=== PATIENT | male | born 1965 | race Caucasian/White ===

== ENCOUNTER 2019-12-28 08:58 | Outpatient (CLI) | payer BC, SELFPAY ==
--- NOTE | 2019-12-28 | EST_ITS ---
Patient Info Name: Leander Sims Age: 54 years : 1965 Gender: Male Ht: 70 in Wt: 280 lbs BSA: 2.56 m2 Exam Date: 12/28/2019 9:17 AM Exam Location: [facility] Stress Patient Status: Outpatient Admit Date: 12/28/2019 Staff Ordering Physician: Hernan, [place] OGMEZ Attending Provider: Hernan, [place] GOMEZ Exercise Technologist: Pau Mack RDCS Exam Type: CA stress test treadmill Study Info Indications R06.09 - Other forms of dyspnea A treadmill exercise stress test was performed. Summary 1. Exercise capacity impaired at <6 METS. 2. No ischemic EKG changes induced up to 93% maximum predicted heart rate for age. Protocol: [facility] Stress ECG Details Stage: REST Duration (min): 10 min : 2 sec Speed (mph): 0.0 Grade (%): 0 HR (bpm): 92 SBP (mmHg): 136 DBP (mmHg): 86 METS: --- Stage: REST Duration (min): 22 min : 34 sec Speed (mph): 0.0 Grade (%): 0 HR (bpm): 98 SBP (mmHg): 136 DBP (mmHg): 86 METS: --- Stage: STAGE 1 Duration (min): 1 min : 0 sec Speed (mph): 1.7 Grade (%): 10 HR (bpm): 114 SBP (mmHg): 136 DBP (mmHg): 86 METS: --- Stage: STAGE 1 Duration (min): 2 min : 0 sec Speed (mph): 1.7 Grade (%): 10 HR (bpm): 125 SBP (mmHg): 136 DBP (mmHg): 86 METS: --- Stage: STAGE 1 Duration (min): 3 min : 0 sec Speed (mph): 1.7 Grade (%): 10 HR (bpm): 130 SBP (mmHg): 185 DBP (mmHg): 95 METS: --- Stage: STAGE 2 Duration (min): 1 min : 0 sec Speed (mph): 2.5 Grade (%): 12 HR (bpm): 141 SBP (mmHg): 185 DBP (mmHg): 95 METS: --- Stage: STAGE 2 Duration (min): 1 min : 53 sec Speed (mph): 2.5 Grade (%): 12 HR (bpm): 150 SBP (mmHg): 185 DBP (mmHg): 95 METS: --- Stage: RECOVERY Duration (min): 0 min : 6 sec Speed (mph): 1.5 Grade (%): 0 HR (bpm): 151 SBP (mmHg): 185 DBP (mmHg): 95 METS: --- Stage: RECOVERY Duration (min): 1 min : 6 sec Speed (mph): 0.0 Grade (%): 0 HR (bpm): 141 SBP (mmHg): 166 DBP (mmHg): 97 METS: --- Stage: RECOVERY Duration (min): 2 min : 6 sec Speed (mph): 0.0 Grade (%): 0 HR (bpm): 115 SBP (mmHg): 166 DBP (mmHg): 97 METS: --- Stage: RECOVERY Duration (min): 3 min : 6 sec Speed (mph): 0.0 Grade (%): 0 HR (bpm): 107 SBP (mmHg): 163 DBP (mmHg): 98 METS: --- Stage: RECOVERY Duration (min): 4 min : 6 sec Speed (mph): 0.0 Grade (%): 0 HR (bpm): 103 SBP (mmHg): 163 DBP (mmHg): 98 METS: --- Stage: RECOVERY Duration (min): 5 min : 6 sec Speed (mph): 0.0 Grade (%): 0 HR (bpm): 99 SBP (mmHg): 175 DBP (mmHg): 98 METS: --- Stage: RECOVERY Duration (min): 6 min : 6 sec Speed (mph): 0.0 Grade (%): 0 HR (bpm):
== END 2019-12-28 08:59 | disposition home or self-care (01) ==
LOC: ANHCARD 09:02
PROVIDERS: PCP Internal Medicine; Visit Provider Internal Medicine
DX: R06.09 Other forms of dyspnea (principal)
CPT/HCPCS: 93017

== ENCOUNTER 2021-05-17 12:37 | Emergency (ER) | payer BC, SELFPAY ==
[2021-05-17 12:42] VITALS: BP 128/96; PULSE 84; RESP 16; TEMP 36.5; O2SAT 100
--- NOTE | 2021-05-17 13:21 | ED.GENADULT ---
HPI - General Adult General Chief complaint: Extremity Problem,Nontraumatic Stated complaint: L FOOT SWELLING Source: patient and family Mode of arrival: wheelchair Limitations: no limitations History of Present Illness HPI narrative: Patient presents for evaluation of swelling in the left foot and left lower extremity. He states he noticed swelling and pain in the left foot 3 days ago. He had an abrasion to his toe and applied some antibiotic ointment. He states swelling improved. A few hours later he had recurrence of his swelling. He states in the last 24 hours swelling has migrated up the left lower extremity. He now has pain in his left foot and in his left calf. He rates the pain 9 out of 10 in severity, without descriptive quality. He cannot identify any precipitating cause or injury. He has a history of glioblastoma and previously underwent surgical excision. He underwent radiation and completed a chemo cycle about three weeks ago. He is now on infusions and states his last infusion was about one week ago. No personal hx of DVT/PE however his mother did have a DVT. He is unsure whether that was a provoked event. He does not smoke. He has some gait instability so he does mobilize with a wheelchair and walker. He lives at home alone. He states that he has a sister that lives next door and a [id number] lives across the street. He has another sister who is here with him today that lives about ten minutes from him. He denies any chest pain or SOB. His oncologist is at [facility], Dr Avelar. Related Data Home Medications Medication Instructions Recorded Confirmed levetiracetam [Keppra] 250 mg PO BID 03/21/19 04/13/19 escitalopram oxalate [Lexapro] 10 mg PO DAILY 04/13/19 04/13/19 omeprazole magnesium [Prilosec OTC] 20 mg PO DAILY 04/13/19 04/13/19 dexamethasone 05/17/21 lisinopril 05/17/21 lorazepam 05/17/21 losartan 05/17/21 methylphenidate HCl 05/17/21 ondansetron HCl 05/17/21 Allergies Allergy/AdvReac Type Severity Reaction Status Date / Time No Known Allergies Allergy Verified 05/17/21 12:44 Review of Systems Review of Systems: CONSTITUTIONAL: Denies fever, chills, or sweats. EYES: Denies visual changes, redness, or discharge. ENT: Denies rhinorrhea, congestion, sore throat, or otalgia. CARDIOVASCULAR: Reports swelling in left lower extremity including his foot. Denies chest pain, palpitations. RESPIRATORY: Denies cough or dyspnea. GASTROINTESTINAL: Denies abdominal pain, nausea, vomiting, or diarrhea. GENITOURINARY: Denies dysuria or hematuria. SKIN: Reports abrasion to left foot MUSCULOSKELETAL: Reports pain in left calf and left foot NEUROLOGIC: Denies headache, numbness, dizziness, or weakness. PSYCHIATRIC: Denies anxiety or depression. [facility] Past Medical History Medical History (Updated 05/17/21 @ 13:29 by SUKHWINDER Deshpande, ) Anxiety Depression Glioblastoma had surgery Surgical History Surgical History H/O brain surgery Family History Family History Mother Cerebrovascular accident DVT (deep venous thrombosis) Social History Social History Smoking status: Never smoker Alcohol intake: current Alcohol use details: wine occasionally Substance use: never Living arrangements: alone Gender identity (if verbalized by the patient): Male Spiritual care concerns: No Exam Narrative: GENERAL: Appears chronically unwell. Disheveled appearance. HEAD: Normocephalic, atraumatic. EYES: PERRLA and EOMI. ENT: Nares clear, no rhinorrhea or epistaxis. Mucous membranes moist. Oropharynx without tonsillar hypertrophy exudate or other lesions. Bilateral TMs pearly chauhan nonbulging NECK: Supple. No adenopathy or masses. No carotid bruits or JVD CHEST: Clear to auscultation. N
== END 2021-05-17 13:25 | disposition short-term general hospital (02) ==
PROVIDERS: Emergency Provider Nurse Practitioner; PCP Internal Medicine
DX: R22.42 Localized swelling, mass and lump, left lower limb (principal); Z85.841 Personal history of malignant neoplasm of brain; Z92.21 Personal history of antineoplastic chemotherapy; Z83.2 Family history of diseases of the blood and blood-forming organs and certain disorders involving the immune mechanism; F41.9 Anxiety disorder, unspecified; F32.9 Major depressive disorder, single episode, unspecified
CPT/HCPCS: 99212; G0463

== ENCOUNTER 2021-05-17 13:43 | Emergency (ER) | payer BC, SELFPAY ==
[2021-05-17] VITALS (14 sets, daily range): BP systolic 140–151; BP diastolic 49–105; PULSE 60–99; RESP 14–20; TEMP 36.2–36.4; O2SAT 97–100
--- NOTE | ~2021-05-17 | US_ITS ---
EXAMINATION: US venous doppler [facility] DATE: 05/17/2021 14:55 INDICATION: Left calf pain. TECHNIQUE: Grayscale ultrasound images without and with compression and Doppler ultrasound images of the left lower extremity veins were obtained. COMPARISON: None. FINDINGS: The visualized portions of left common femoral vein and greater saphenous vein outflow are patent. Th ere is thrombus involving left profunda femoral, femoral, popliteal, posterior tibial, peroneal, and gastrocnemius veins. IMPRESSION: 1. Extensive deep vein thrombosis. I called this result to Dr. Tran. Reviewed, dictated and finalized at location E. TOR SWEEPER DRIVER
--- NOTE | ~2021-05-17 | XR_ITS ---
EXAMINATION: XR tibia fibula LT 2V INDICATION: Left leg pain after fall TECHNIQUE: Two views of the left tibia and fibula are obtained. COMPARISON: None available FINDINGS: Bone alignment is normal. There is no fracture. Mild osteoarthritis is noted in the knee. IMPRESSION: 1. No acute osseous abnormality. Reviewed, dictated and finalized at location A. Y WORKER
--- NOTE | 2021-05-17 14:11 | ED.GENADULT ---
HPI - General Adult General Chief complaint: Extremity Problem,Nontraumatic <Zhen Tran DO - Last Filed: 05/17/21 19:13> Stated complaint: swollen foot <Zhen Tran DO - Last Filed: 05/17/21 19:13> Time Seen by Provider: 05/17/21 13:45 <Zhen Tran DO - Last Filed: 05/17/21 19:13> Source: RN notes reviewed <Zhen Tran DO - Last Filed: 05/17/21 19:13> History of Present Illness HPI narrative: Patient presents emergency department from home for left leg swelling. Patient states he has noted swelling and pain in the left leg for the past 5 days states that he did have several falls last week but then noted no known injury at that time patient does state a history of blood clots in the family but he denies any history of DVT he states he does have some tenderness in the calf region he denies any ankle or knee pain patient denies any fevers or chills chest pain or shortness of breath states he does have a history of glioblastoma and is currently being followed and treated by oncology at [facility] <Zhen Tran DO - Last Filed: 05/17/21 19:13> Related Data Home medications: Home Medications Medication Instructions Recorded Confirmed levetiracetam [Keppra] 500 mg PO BID 03/21/19 04/13/19 escitalopram oxalate [Lexapro] 20 mg PO DAILY 04/13/19 04/13/19 bevacizumab [Avastin] mg 05/17/21 dexamethasone 2 mg PO QPM 05/17/21 dexamethasone 4 mg PO QAM 05/17/21 lorazepam 1 mg PO DAILY 05/17/21 losartan 25 mg PO QAM 05/17/21 ondansetron HCl 8 mg PO Q8H 05/17/21 temozolomide PO 05/17/21 <Zhen Tran DO - Last Filed: 05/17/21 19:13> Allergies/adverse reactions: Allergies Allergy/AdvReac Type Severity Reaction Status Date / Time No Known Allergies Allergy Verified 05/17/21 14:59 <Zhen Tran DO - Last Filed: 05/17/21 19:13> Review of Systems Review of Systems: Gen.: Denies fevers or chills ENT: Denies congestion Respiratory: Denies shortness of breath or cough CV: Denies chest pain or palpitations GI: Denies abdominal pain nausea, emesis or diarrhea Musculoskeletal: HPI Neuro: Denies numbness, tingling, weakness or focal weakness Skin: Denies rash Except as documented, all other systems reviewed and negative <Zhen Tran DO - Last Filed: 05/17/21 19:13> [facility] Past Medical History Medical History: Medical History Anxiety Depression Glioblastoma had surgery <Zhen Tran DO - Last Filed: 05/17/21 19:13> Surgical History Surgical History: Surgical History H/O brain surgery <Zhen Tran DO - Last Filed: 05/17/21 19:13> Family History Family History: Family History (Reviewed 05/17/21 @ 13:30 by Marcos Ruiz, [facility] [place]) Mother Cerebrovascular accident DVT (deep venous thrombosis) <Zhen Tran DO - Last Filed: 05/17/21 19:13> Social History Social History: Social History Smoking status: Never smoker Alcohol intake: current Alcohol use details: wine occasionally Substance use: never Gender identity (if verbalized by the patient): Male Spiritual care concerns: No <Zhen Tran DO - Last Filed: 05/17/21 19:13> Exam Narrative: APPEARANCE: No acute distress, nontoxic, resting in bed EYES: EOMI HEENT: Normocephalic, atraumatic, OMM RESPIRATORY: No respiratory distress Clear to auscultation bilaterally with no rhonchi wheezing or rales. CARDIOVASCULAR: Regular rate and rhythm without murmurs rubs or gallops. ABDOMINAL: Soft, nontender, nondistended, no rebound or guarding MUSCULOSKELETAl: Moves all extremities. No clubbing, cyanosis 3+ edema the left lower extremity and the left calf is tender to palpation no tenderness left ankle or knee range of motion both dorsalis pedis p
[2021-05-17 15:27] LABS: Basophils Percent Auto 0.4 % (0.2-1.2); Hemoglobin 14.9 g/dL (14.0-18.0); Immature Granulocyte Absolute 0.38 K/mm3 (0.00-0.031); Immature Granulocyte Percent A 4.1 % (0-0.5); Lymphocytes Absolute Auto 1.05 K/mm3 (0.9-3.2); Lymphocytes Percent Auto 11.3 % (18.3-44.2); Mean Corpuscular HGB Conc 33.1 g/dl (32-36); Mean Corpuscular Hemoglobin 35.1 pg (26-34); Mean Corpuscular Volume 105.9 fl (80-100); Mean Platelet Volume 9.7 fl (7.4-10.4); Monocytes Absolute Auto 0.8 K/mm3 (0.1-0.6); Monocytes Percent Auto 8.1 % (2.6-8.5); Neutrophils Percent Auto 76.1 % (45.5-73.1); Nucleated Red Blood Cells Perc 0.4 % (0.0-0.2); Platelet Count Result 164 k/mm3 (150-375); Red Blood Count 4.25 M/mm3 (4.6-6.20); Red Cell Distribution Width 14.2 % (11.5-14.5); White Blood Count 9.3 K/mm3 (4.5-10.0)
[2021-05-17 15:39] LABS: Alanine Aminotransferase 78 U/L (4-50); Albumin Level 3.7 g/dL (3.5-5.1); Alkaline Phosphatase 66 U/L (38-126); Anion Gap 4 mmol/L (8-16); Aspartate Amino Transferase 56 U/L (17-59); Bilirubin,Total 0.8 mg/dL (0.2-1.3); Blood Urea Nitrogen 33 mg/dL (9-20); Calcium 9.3 mg/dL (8.4-10.2); Carbon Dioxide 30 mmol/L (22-30); Chloride 98 mmol/L (98-107); Estimated CRCL calculation 148 ml/min; Estimated Glomerular Filt Rate > 60; Glucose 155 mg/dL (65-110); INR 0.9; Partial Thromboplastin Time 20.1 SECONDS (22.3-36.8); Potassium 4.5 mmol/L (3.4-5.0); Sodium 132 mmol/L (137-145)
[2021-05-17 15:54] LABS: SARS-CoV-2 RNA PCR Positive
--- NOTE | 2021-05-17 20:55 | PC.NURSE ---
Pt able to answer all questions appropriately. alert to person, place, time, and situation. Updated pt and family member present that we are still awaiting bed assignment at [facility]. Pt provided with boxed lunch. Denies hs of diabetes. Remains on cardiac/bp/o2 monitor.
--- NOTE | 2021-05-18 00:31 | PC.NURSE ---
Pt's family out of room to request tylenol for pt. This RN obtained verbal order from ED MD Coats.
[2021-05-18] MEDS: ACETAMINOPHEN 325 MG TABLET 650 MG PO (00:33)
[2021-05-18 01:18] VITALS: BP 106/59; PULSE 67; RESP 16; TEMP 36.4; O2SAT 99
[2021-05-18 03:14] VITALS: BP 141/88; PULSE 60; RESP 16; O2SAT 99
--- NOTE | 2021-05-18 04:29 | PC.NURSE ---
spoke with Deion at the [facility] transfer center. There still isn't any beds available and they will call us when one opens up.
[2021-05-18 06:00] VITALS: BP 145/85; PULSE 66; RESP 16; TEMP 36.4; O2SAT 98
[2021-05-18] MEDS: MORPHINE SULFATE (*CRX) 4 MG/ML INJ IV PUSH (06:19)
--- NOTE | 2021-05-18 06:25 | PC.NURSE ---
Update given to sister Yara via telephone. [phone]
--- NOTE | 2021-05-18 07:30 | PC.NURSE ---
Per Dr Ramesh since there are no beds available yet at [facility] it is okay for pt to eat breakfast.
[2021-05-18 09:45] VITALS: BP 141/94; PULSE 76; RESP 18; O2SAT 100
--- NOTE | 2021-05-18 11:18 | PC.NURSE ---
received bed at [facility] [id number] call report to [phone]
--- NOTE | 2021-05-18 11:25 | PC.NURSE ---
[facility] ETA [address] [place] [facility] ETA 12p Trip # [id number]
--- NOTE | 2021-05-18 11:31 | PC.NURSE ---
pt has been accepted at [facility] , [place] [id number], report number [phone], attempted to call report, left number.
[2021-05-18 13:21] VITALS: BP 142/78; PULSE 78; RESP 18; O2SAT 98
== END 2021-05-18 13:21 | disposition short-term general hospital (02) ==
PROVIDERS: Emergency Medicine; Emergency Provider Emergency Medicine; PCP Internal Medicine
DX: I82.412 Acute embolism and thrombosis of left femoral vein (principal); I82.492 Acute embolism and thrombosis of other specified deep vein of left lower extremity; C71.9 Malignant neoplasm of brain, unspecified; U07.1 COVID-19; F41.9 Anxiety disorder, unspecified; F32.A Depression, unspecified; Z86.16 Personal history of COVID-19
CPT/HCPCS: 36415; 73590; 80053; 85025; 85610; 85730; 93971; 96374; 99285; A9270; C9803; J2270; U0003; U0005